=== PATIENT | male | born 1995 | race Caucasian/White ===

== ENCOUNTER 2023-08-24 00:49 | Emergency (ER) | payer SELFPAY ==
--- OUTSIDE RECORDS SUMMARY | 2023-08-24 00:52 | XMS REPORT | Continuity of Care Document ---
:1995 Author Organization [facility] t Address [address] [facility] [place]. [address] [place] [address] Care Team Providers Name Role Phone Asked, No Pcp Primary Care Physician Unavailable Problems This patient has no known problems. Allergies, Adverse Reactions, Alerts This patient has no known allergies or adverse reactions. Social History Social Habit Start Date Stop Date Quantity Comments Source Sexual orientation [facility] History of Social 2019-08-30 2019-08-[address] function 00:00:00 00:00:00 Hospital Alcohol intake 2018-10-25 2018-10-25 Current [facility] 00:00:00 00:00:00 non-drinker of Hospital alcohol (finding) Tobacco use and 2018-10-25 2018-10-25 Smokeless [facility] exposure 00:00:00 00:00:00 tobacco non-user Hospital Sex Assigned At [birth year] [facility] 00:00:00 00:00:00 Hospital Smoking Status Start Date Stop Date Source Never smoked tobacco [facility] Medications Ordered Filled Start Stop Current Ordering Indication Dosage Frequency Signature Comments Components Source Medication Medication Date Date Medication? Clinician (SIG) Name Name betamethaso 2017- Yes Q.5D Apply Metho di ne, [address] augmented, 14:33: 2 (two) [facility] (DIPROLENE) 50 times a l 0.05 % day. cream Procedures This patient has no known procedures. Encounters Start End Encounter Admission Attending Care Care Encounter Source Date/Time Date/Time Type Type Clinicians Facility Department ID 2023-08-18 2023-08-18 Outpatient SFA SFA [id number] [address] 15:58:09 15:58:09 [id number] F Toney Results This patient has no known results.
[2023-08-24 01:34] LABS: Absolute Lymphocytes (CBC) 2.4 K/uL (0.7-4.9); Hematocrit 45.7 % (39.6-49.0); Lymphocytes % 28.4 % (15.3-44.8); MPV 10.1 fL (7.6-11.3); Platelets 157 thou/uL (152-406); RBC Red Blood Cell Count 5.13 M/uL (4.33-5.43)
[2023-08-24 01:51] LABS: Albumin 4.4 g/dL (3.4-5.0); Bilirubin Total 0.5 mg/dL (0.2-1.0); Potassium 4.2 mEq/L (3.5-5.1); Protein, Total 8.1 g/dL (6.4-8.2)
--- NOTE | 2023-08-24 02:23 | EDPHYS ---
Physician Documentation [facility] Name: Joseph Golden Age: 27 yrs Sex: Male : 1995 Arrival Date: 08/24/2023 Time: 00:49 Bed 20 Private MD: ED Physician Tory Suazo HPI: 08/24 00:59 This 27 yrs old Male presents to ER via Unassigned with complaints of Abdominal Pain, sb4 Nausea. 00:59 The patient presents with abdominal pain in the right upper quadrant. Onset: The sb4 symptoms/episode began/occurred 1 year(s) ago, and became worse today. The symptoms do not radiate. Associated signs and symptoms: Pertinent positives: nausea and vomiting, diarrhea. Modifying factors: The symptoms are alleviated by pressure. the symptoms are aggravated by food. Severity of pain: in the emergency department the pain is a 6 / 10. The patient has experienced similar episodes in the past, multiple times, but today's symptoms are worse. The patient has not recently seen a physician. Historical: - Allergies: 00:58 No Known Allergies; as6 - Home Meds: 00:58 None [Active]; as6 - PMHx: 00:58 None; as6 - PSHx: 00:58 None; as6 - Immunization history:: Adult Immunizations up to date. - Social history:: Smoking status: Patient denies any tobacco usage or history of. ROS: 00:59 Constitutional: Negative for fever, chills, and weight loss, sb4 00:59 Abdomen/GI: Positive for abdominal pain, nausea, vomiting, and diarrhea, 00:59 All other systems are negative, Exam: 00:59 Constitutional: This is a well developed, well nourished patient who is awake, alert, sb4 and in no acute distress. Head/Face: Normocephalic, atraumatic. Eyes: Extra-ocular motions intact. Periorbital areas with no swelling, redness, or edema. ENT: Mucous membranes moist. Cardiovascular: Regular rate and rhythm with a normal S1 and S2. Respiratory: Lungs have equal breath sounds bilaterally, clear to auscultation and percussion. No rales, rhonchi or wheezes noted. No increased work of breathing, no retractions or nasal flaring. Skin: Warm, dry with normal turgor. Normal color with no rashes, no lesions, and no evidence of cellulitis. MS/ Extremity: Pulses equal, no cyanosis. Neurovascular intact. Full, normal range of motion. Neuro: Awake and alert, GCS 15, oriented to person, place, time, and situation. Motor strength 5/5 in all extremities. Sensory grossly intact. 00:59 Abdomen/GI: Inspection: abdomen appears normal, Bowel sounds: normal, Palpation: soft, mild abdominal tenderness, in the right upper quadrant, voluntary guarding, is not appreciated, Vital Signs: 00:59 BP 139 / 97; Pulse 71; Resp 18 S; Temp 98(O); Pulse Ox 99% on R/A; Weight 68.95 kg (R); as6 Height 5 ft. 9 in. (R); Pain 6/10; 02:03 BP 126 / 82; Pulse 72; Resp 16; Pulse Ox 98% on R/A; jb4 00:59 Body Mass Index 22.45 (68.95 kg, 175.26 cm) as6 00:59 Pain Scale: Adult as6 MDM: 00:51 Patient medically screened. sb4 00:59 Differential diagnosis: cholecystitis, Cholelithiasis, non-specific abd pain. sb4 01:47 Independent interpretation of the following test(s) in the Emergency Department CT sb4 Scan: My interpretation is my interpretation of the abdomen pelvis CT images are no evidence of cholelithiasis or cholecystitis. 02:21 Data reviewed: vital signs, nurses notes, lab test result(s), radiologic studies, and sb4 as a result, I will discharge patient. Historians other than the Patient: Parent: mom and dad. Counseling: I had a detailed discussion with the patient and/or guardian regarding the historical points, exam findings, and any diagnostic results supporting the discharge/admit diagnosis, the presence of at least one elevated blood pressure reading (>120/80) during this emergency department visit, lab results, radiology results, the need for outpatient follow up, a crime specialist, to return to the emergency department if symptoms worsen or persist or if there are any questions or concerns that arise at home. 08/24 00:58 Order name: CBC with Diff; Complete Time: 01:37 sb4 08/24 00:58 Order name: CMP; Complete Time: 01:56 sb4 10/08 00:58 Order name: Lipase; Complete Time: 01:56 sb4 08/24 00:58 Order name: CT Abd/Pelvis - IV Contrast Only sb4 08/24 00:58 Order name: IV Saline Lock; Complete Time: 01:39 sb4 08/24 00:58 Order name: Labs collected and sent; Complete Time: 01:39 sb4 Administered Medications: 02:30 Drug: morphine IVP or IV 2 mg IVP once over 4 mins Route: IVP; Infused Over: 4 mins; jb4 Site: right forearm; 02:30 Drug: Ondansetron IVP 4 mg IVP once; over 2 minutes Route: IVP; Site: right forearm; jb4 Disposition: 06:25 I reviewed the patient's care provided by the Advanced Practice Provider and agree with sd2 the diagnosis and treatment plan. Disposition Summary: 08/24/23 02:22 Discharge Ordered Notes: Location: Home sb4 Problem: an ongoing problem sb4 Symptoms: are unchanged sb4 Condition: Stable sb4 Diagnosis - Other viral enteritis sb4 - Upper abdominal pain, unspecified sb4 Followup: sb4 - With: Etienne Muse MD - When: As needed - Reason: Further diagnostic work-up, Recheck today's complaints, Re-evaluation by your physician Discharge Instructions: - Discharge Summary Sheet sb4 - Viral Gastroenteritis, Adult, [id number] sb4 - Abdominal Pain, Adult, [id number] sb4 Forms: - Medication Reconciliation Form sb4 - Thank You Letter sb4 - Antibiotic Education sb4 - Prescription Opioid Use sb4 - Patient Portal Instructions sb4 - Leadership Thank You Letter sb4 Prescriptions: - Zofran 4 mg Oral Tablet - take 1 tablet ORAL route every 12 hours As needed; 20 tablet; Refills: 0, sb4 Product Selection Permitted - Diclofenac Sodium 75 mg Oral Tablet Sustained Release - take 1 tablet ORAL route 2 times per day; 30 tablet; Refills: 0, Product sb4 Selection Permitted - dicyclomine 20 mg Oral tablet - take 1 tablet ORAL route 3 times per day; 20 tablet; Refills: 0, Product sb4 Selection Permitted Signatures: Dispatcher [employer] Basim Nails RN RN jb4 Jorge Castellanos RN RN as6 Tory Suazo MD MD sd2 Brown, Jenna, PA-C PA-C sb4
--- NOTE | 2023-08-24 02:23 | ER ---
Nurse's Notes [facility] Name: Joseph Golden Age: 27 yrs Sex: Male : 1995 Arrival Date: 08/24/2023 Time: 00:49 Bed 20 Private MD: Diagnosis: Other viral enteritis;Upper abdominal pain, unspecified Presentation: 08/24 00:59 Chief complaint: Patient states: RUQ pain that started last night with n/v/d. as6 Coronavirus screen: At this time, the client does not indicate any symptoms associated with coronavirus-19. Ebola Screen: No symptoms or risks identified at this time. Initial Sepsis Screen: Does the patient meet any 2 criteria? No. Patient's initial sepsis screen is negative. Does the patient have a suspected source of infection? No. Patient's initial sepsis screen is negative. Risk Assessment: Do you want to hurt yourself or someone else? Patient reports no desire to harm self or others. Onset of symptoms was August 23, 2023. 00:59 Acuity: TK 3 as6 00:59 Method Of Arrival: Ambulatory as6 Historical: - Allergies: 00:58 No Known Allergies; as6 - Home Meds: 00:58 None [Active]; as6 - PMHx: 00:58 None; as6 - PSHx: 00:58 None; as6 - Immunization history:: Adult Immunizations up to date. - Social history:: Smoking status: Patient denies any tobacco usage or history of. Screenin:17 [facility] ED Fall Risk Assessment (Adult) History of falling in the last 3 months, jb4 including since admission No falls in past 3 months (0 pts) Confusion or Disorientation No (0 pts) Score/Fall Risk Level 0 - 2 = Low Risk Oriented to surroundings, Maintained a safe environment. Abuse screen: Denies threats or abuse. Nutritional screening: No deficits noted. Tuberculosis screening: No symptoms or risk factors identified. Assessment: 01:17 General: Appears in no apparent distress. comfortable, Behavior is calm, cooperative, jb4 appropriate for age. Pain: Complains of pain in right upper quadrant Pain does not radiate. Pain currently is 4 out of 10 on a pain scale. Neuro: Level of Consciousness is awake, alert, obeys commands, Oriented to person, place, time, situation. Cardiovascular: Patient's skin is warm and dry. Respiratory: Airway is patent Respiratory effort is even, unlabored, Respiratory pattern is regular, symmetrical. GI: Abdomen is flat, non-distended. : No signs and/or symptoms were reported regarding the genitourinary system. EENT: No signs and/or symptoms were reported regarding the EENT system. Derm: Skin is intact, Skin is pink, warm \T\ dry. Musculoskeletal: Circulation, motion, and sensation intact. Range of motion:. 02:03 Reassessment: Patient appears in no apparent distress at this time. Patient and/or jb4 family updated on plan of care and expected duration. Pain level reassessed. Patient is alert, oriented x 3, equal unlabored respirations, skin warm/dry/pink. Vital Signs: 00:59 BP 139 / 97; Pulse 71; Resp 18 S; Temp 98(O); Pulse Ox 99% on R/A; Weight 68.95 kg (R); as6 Height 5 ft. 9 in. (R); Pain 6/10; 02:03 BP 126 / 82; Pulse 72; Resp 16; Pulse Ox 98% on R/A; jb4 00:59 Body Mass Index 22.45 (68.95 kg, 175.26 cm) as6 00:59 Pain Scale: Adult as6 ED Course: 00:51 Patient arrived in ED. jj6 00:51 Jenna Park PA-C is PHCP. sb4 00:51 Tory Suazo MD is Attending Physician. sb4 00:58 Arm band placed on. as6 01:00 Triage completed. as6 01:03 Basim Hearn, RN is Primary Nurse. jb4 01:17 Patient has correct armband on for positive identification. Bed in low position. Call jb4 light in reach. Side rails up X 1. Client placed on continuous cardiac and pulse oximetry monitoring. NIBP monitoring applied. 01:17 No provider procedures requiring assistance completed. jb4 01:39 Inserted saline lock: 22 gauge in right forearm, using aseptic technique. wm 01:39 CMP Sent. wm 01:39 Lipase Sent. wm 01:55 CT Abd/Pelvis - IV Contrast Only In Process Unspecified. EDMS 02:21 Etienne Muse MD is Referral Physician. sb4 02:39 IV discontinued, intact, bleeding controlled, No redness/swelling at site. Pressure jb4 dressing applied. Administered Medications: 02:30 Drug: morphine IVP or IV 2 mg IVP once over 4 mins Route: IVP; Infused Over: 4 mins; jb4 Site: right forearm; 02:30 Drug: Ondansetron IVP 4 mg IVP once; over 2 minutes Route: IVP; Site: right forearm; jb4 Medication: 01:17 VIS not applicable for this client. jb4 Outcome: 02:22 Discharge ordered by . sb4 02:39 Discharged to home ambulatory, with family, jb4 02:39 Condition: stable 02:39 Discharge instructions given to patient, Instructed on discharge instructions, follow up and referral plans. medication usage, Demonstrated understanding of instructions, follow-up care, medications, Prescriptions given X 3, 02:40 Patient left the ED. jb4 Signatures: Dispatcher [employer] EDMS Baism Hearn, RN RN jb4 Ely Carmona Jennifer jj6 Jorge Castellanos RN RN as6 Jenna Park PA-C PATrudy sb4
[2023-08-24] MEDS ORDERED: MORPHINE 2 MG/ML SYR ONE (02:39)
[2023-08-24] MEDS ORDERED: ONDANSETRON 4 MG/2 ML VIAL ONE (02:39)
[2023-08-24 02:50] VITALS: TEMP 98
[2023-08-24 02:55] VITALS: BP 126/82; O2SAT 98
--- NOTE | 2023-08-25 10:05 | RAD REPORT ---
EXAM DESCRIPTION: CT - Abdomen Pelvis W Contrast - 08/24/2023 6:46 am CLINICAL HISTORY: ABD PAIN COMPARISON: None Available. TECHNIQUE: CT of the abdomen and pelvis performed following IV administration of iodinated contras t. This exam was performed according to our departmental dose-optimization program, which includes au tomated exposure control, adjustment of the mA and/or kV according to patient size and/or use of iter ative reconstruction technique. FINDINGS: Lung Bases: The visualized lung bases are clear. Bones: No destructive bone lesions identified. Abdomen: Liver: The liver has normal size and density. No intrahepatic biliary dilatation. Gallbladder: No calcified gallstones. Spleen, Pancreas, and Adrenal Glands: The spleen, pancreas, and adrenal glands are unremarkable. Kidneys: No hydronephrosis or obstructing calculus. Vasculature: The aorta and IVC have normal caliber and position. The portal vein is patent. The pro ximal visceral and renal arteries are patent. Stomach: The stomach and duodenum have normal course. Other: No free intraperitoneal air. No free fluid or lymphadenopathy. Pelvis: Bladder: Urinary bladder is unremarkable. Bowel: No dilated loops of large or small bowel. Wall thickening of the proximal small bowel. Moder ate amount of stool. Appendix: Normal appendix. Pelvis: Prostate is not enlarged. Possible small hydrocele. IMPRESSION: 1. Wall thickening of the proximal small bowel. These findings could be seen with nons pecific enteritis. 2. Possible small hydrocele. Electronically signed by: Apollo Nolasco 08/24/2023 2:14 AM CDT Due to temporary technical issues with the PACS/Fluency reporting system, reports are being signed by the in house radiologist without review as a courtesy to ensure prompt reporting. The interpreting r adiologist is fully responsible for the content of the report.
== END 2023-08-24 02:40 | disposition home or self-care (01) ==
LOC: ER 00:49
DX: A08.39 Other viral enteritis (principal)
CPT/HCPCS: 36415; 74177; 80053; 83690; 85025; 96374; 96375; 99284; J2270; J2405; Q9967